=== PATIENT | female | born 1990 | race Caucasian/White ===

== ENCOUNTER 2021-07-26 15:20 | Emergency (ER) | payer OTHER ==
[~2021-07-26 15:20] MED LIST: CLARITIN10 MG PO; COLACE 100MG C100 MG PO; CYCLOBENZAPRINE5 MG PO; DELSYM30 MG/5 ML PO; FLONASE 0.05% N16 GM; IBUPROFEN600 MG PO; IMITREX50 MG PO; NAPROSYN500 MG PO; NEXIUM40 MG PO; ONDANSETRON ODT4 MG PO; PREDNISONE 50 M50 MG PO; SYNTHROID25 MCG PO; ZANAFLEX2 MG PO
[2021-07-26 16:20] LABS: HEMOGLOBIN 13.9 gm/dl (12.3-15.3); RED BLOOD COUNT 4.61 M/UL (4.00-5.10); WHITE BLOOD COUNT 7.2 K/UL (4.5-11.0)
[2021-07-26 16:38] LABS: BUN/CREATININE RATIO 11 (0-10)
[2021-07-26] MEDS ORDERED: PHENERGAN 25 MG25 M1 PO (18:16)
== END 2021-07-26 18:26 | disposition home or self-care (01) ==
LOC: ER1 15:20
PROVIDERS: Family Medicine
DX: U07.1 COVID-19 (principal); R51.9 Headache, unspecified; R55 Syncope and collapse; G43.909 Migraine, unspecified, not intractable, without status migrainosus
CPT/HCPCS: 70450; 80048; 80307; 81001; 82550; 82553; 83735; 83874; 84439; 84443; 84484; 85025; 93005; 96374; 96375; 99284; J0780; J1200; J1885; U0002